=== PATIENT | male | born 1955 | race Caucasian/White ===

== ENCOUNTER 2017-12-27 07:46 | Inpatient (IN) | payer MEDICARE, OTHER ==
[2017-12-27] MEDS: SOD CHLORIDE 0.9% 1,000 ML IV ×2 (09:55→10:26)
[2017-12-27 09:59] LABS: ADD MAN DIFF? NO
[2017-12-27 10:01] LABS: BASOPHIL # 0.1 10^3/ul (0.0-0.1); EOSINOPHILS # 0.4 10^3/ul (0.0-0.5); HEMATOCRIT 42.9 % (42.0-52.0); HEMOGLOBIN 13.9 g/dl (14.0-18.0); LYMPHOCYTES % 13.4 % (15.0-51.0); MEAN CORPUSCULAR HEMOGLOBIN 28.5 pg (29.0-33.0); MEAN CORPUSCULAR HGB CONC 32.4 g/dl (32.0-37.0); MEAN CORPUSCULAR VOLUME 87.9 fl (82.0-101.0); MEAN PLATELET VOLUME 10.2 fl (7.4-10.4); MONOCYTE # 0.6 10^3/ul (0.3-0.9); MONOCYTES % 8.3 % (0.0-11.0); NEUTROPHILS % 70.6 % (39.0-77.0); PLATELET COUNT 172 10^3/UL (140-415); RED BLOOD COUNT 4.88 10^6/ul (4.70-6.10); RED CELL DISTRIBUTION WIDTH 14.3 % (11.5-14.5)
[2017-12-27 10:01] LABS: WHITE BLOOD COUNT 7.1 10^3/ul (4.8-10.8)
[2017-12-27 10:17] LABS: ALANINE AMINOTRANSFERASE 16 IU/L (13-69); ALKALINE PHOSPHATASE 98 IU/L (42-121); ANION GAP 14 (8-16); ASPARTATE AMINO TRANSFERASE 21 IU/L (15-46); BILIRUBIN,INDIRECT 0.1 mg/dl (0-1.1); BILIRUBIN,TOTAL 0.1 mg/dl (0.2-1.3); BLOOD UREA NITROGEN 51 mg/dl (7-20); CALCIUM 8.8 mg/dl (8.4-10.2); CARBON DIOXIDE 24 mmol/L (21-31); CHLORIDE 108 mmol/L (97-110); CREATININE 2.96 mg/dl (0.61-1.24); GLUCOSE 213 mg/dl (70-220); POTASSIUM 4.8 mmol/L (3.5-5.1); SODIUM 141 mmol/L (135-144)
[2017-12-27 10:20] LABS: INR 0.95; PARTIAL THROMBOPLASTIN TIME 25.8 Sec (23.0-35.0); PROTIME 12.8 Sec (11.9-14.9)
[2017-12-27] MEDS ORDERED: ONDANSETRON 4 MG INJ IV (10:30)
[2017-12-27] MEDS ORDERED: ACETAMINOPHEN 325 MG TAB PO (10:30)
[2017-12-27 10:39] LABS: HEMOGLOBIN A1C 7.9 % (0-5.9)
[2017-12-27 10:41] LABS: ALBUMIN 3.6 g/dl (3.3-4.9); ALBUMIN/GLOBULIN RATIO 1.05; CHOLESTEROL 168 mg/dl (100-200); HDL CHOLESTEROL 33 mg/dl (30-78)
[2017-12-27 11:02] LABS: LDL CHOLESTEROL,CALCULATED 91 mg/dl; TRIGLYCERIDES 221 mg/dl (0-149)
[2017-12-27] MEDS ORDERED: TESTOSTERONE CYPIONATE 100 MG XX (11:30)
[2017-12-27] MEDS ORDERED: DOCUSATE SODIUM 100 MG CAP PO ×2 (11:30)
[2017-12-27] MEDS ORDERED: HYDROmorphONE 2 MG TAB PO (11:30)
[2017-12-27] MEDS ORDERED: ACETAMINOPHEN PO (11:30)
[2017-12-27] MEDS ORDERED: HYDROCODONE/APAP (5/325) TAB PO ×2 (11:30→15:30)
[2017-12-27] MEDS ORDERED: ONDANSETRON 4 MG TAB PO (11:30)
[2017-12-27] MEDS ORDERED: NACL 0.9% 3 ML SYG IV (11:30)
[2017-12-27] MEDS ORDERED: HYDROCODONE PO (11:30)
[2017-12-27] MEDS ORDERED: LORAZEPAM 0.5 MG TAB PO (11:30)
[2017-12-27] MEDS ORDERED: ZOLPIDEM TARTRATE 5 MG PO (11:30)
[2017-12-27] MEDS ORDERED: BISACODYL 10 MG SUPP PR (11:30)
[2017-12-27] MEDS ORDERED: [UNRECOGNIZED DRUG - OTHER] PO (11:30)
[2017-12-27] MEDS ORDERED: INSULIN ASPART [NOVOLOG] 3 ML PEN SC (12:00)
[2017-12-27 14:11] LABS: ANION GAP 14 (8-16); BLOOD UREA NITROGEN 50 mg/dl (7-20); CALCIUM 9.3 mg/dl (8.4-10.2); CARBON DIOXIDE 26 mmol/L (21-31); CHLORIDE 108 mmol/L (97-110); CREATININE 2.96 mg/dl (0.61-1.24); GLUCOSE 159 mg/dl (70-220); POTASSIUM 4.4 mmol/L (3.5-5.1); SODIUM 144 mmol/L (135-144)
[2017-12-27] MEDS ORDERED: GLUCAGON 1 MG INJ IM (15:00)
[2017-12-27] MEDS ORDERED: DEXTROSE 50% 50 ML SYRINGE IV ×2 (15:00)
[2017-12-27] MEDS: FAMOTIDINE 20 MG TAB PO (15:00)
[2017-12-27] MEDS ORDERED: GLUCOSE GEL 15 GRAM TUBE PO ×2 (15:00)
[2017-12-27] MEDS ORDERED: GLUCOSE GEL 15 GRAM TUBE BUCCAL (15:00)
[2017-12-27] MEDS: LACTATED RINGER'S 500 ML IV (15:30)
[2017-12-27] MEDS ORDERED: ZOLPIDEM 5 MG TAB PO (15:30)
[2017-12-27] MEDS: LINAGLIPTIN 5 MG TABLET PO (16:49)
[2017-12-27] MEDS: Insulin NOVOLOG SS MILD Algorithm (SS with meals and bedtime) SC ×2 (17:25→21:00)
[2017-12-27] MEDS: METOPROLOL 25 MG TAB PO (21:10)
[2017-12-27] MEDS: URSODIOL 300 MG CAP PO (21:11)
[2017-12-27] MEDS: MONTELUKAST 10 MG TAB PO (21:12)
[2017-12-27] MEDS: ATORVASTATIN 40 MG TAB PO (21:12)
[2017-12-28] MEDS: ACCUCHECK AT 2AM (Patients on SS coverage) XX (02:00)
[2017-12-28 06:13] LABS: ADD MAN DIFF? NO
[2017-12-28 06:21] LABS: WHITE BLOOD COUNT 7.4 10^3/ul (4.8-10.8)
[2017-12-28 06:21] LABS: BASOPHIL # 0.1 10^3/ul (0.0-0.1); BASOPHILS % 1.2 % (0.0-2.0); EOSINOPHILS # 0.4 10^3/ul (0.0-0.5); EOSINOPHILS % 5.9 % (0.0-7.0); HEMATOCRIT 41.5 % (42.0-52.0); HEMOGLOBIN 13.2 g/dl (14.0-18.0); LYMPHOCYTES # 1.1 10^3/ul (0.8-2.9); LYMPHOCYTES % 14.2 % (15.0-51.0); MEAN CORPUSCULAR HEMOGLOBIN 27.9 pg (29.0-33.0); MEAN CORPUSCULAR HGB CONC 31.8 g/dl (32.0-37.0); MEAN CORPUSCULAR VOLUME 87.7 fl (82.0-101.0); MEAN PLATELET VOLUME 10.3 fl (7.4-10.4); MONOCYTE # 0.8 10^3/ul (0.3-0.9); MONOCYTES % 10.5 % (0.0-11.0); NEUTROPHILS % 67.5 % (39.0-77.0); PLATELET COUNT 170 10^3/UL (140-415); RED BLOOD COUNT 4.73 10^6/ul (4.70-6.10); RED CELL DISTRIBUTION WIDTH 14.3 % (11.5-14.5)
[2017-12-28 06:47] LABS: ALANINE AMINOTRANSFERASE 14 IU/L (13-69); ALBUMIN 3.3 g/dl (3.3-4.9); ALBUMIN/GLOBULIN RATIO 1.03; ALKALINE PHOSPHATASE 75 IU/L (42-121); ANION GAP 12 (8-16); ASPARTATE AMINO TRANSFERASE 16 IU/L (15-46); BILIRUBIN,INDIRECT 0.3 mg/dl (0-1.1); BILIRUBIN,TOTAL 0.3 mg/dl (0.2-1.3); BLOOD UREA NITROGEN 47 mg/dl (7-20); CALCIUM 8.9 mg/dl (8.4-10.2); CARBON DIOXIDE 25 mmol/L (21-31); CHLORIDE 109 mmol/L (97-110); CREATININE 2.47 mg/dl (0.61-1.24); GLUCOSE 112 mg/dl (70-220); MAGNESIUM 1.7 mg/dl (1.7-2.5); POTASSIUM 5.4 mmol/L (3.5-5.1); SODIUM 141 mmol/L (135-144); TOTAL PROTEIN 6.5 g/dl (6.1-8.1)
[2017-12-28] MEDS: Insulin NOVOLOG SS MILD Algorithm (SS with meals and bedtime) SC ×4 (07:25→21:00)
[2017-12-28] MEDS: FAMOTIDINE 20 MG TAB PO (08:22)
[2017-12-28] MEDS: LINAGLIPTIN 5 MG TABLET PO (08:22)
[2017-12-28] MEDS: URSODIOL 300 MG CAP PO ×2 (08:22→21:18)
[2017-12-28] MEDS: LORATADINE 10 MG TAB PO (08:22)
[2017-12-28] MEDS: FLUDROCORTISONE 0.1 MG TAB PO (08:23)
[2017-12-28] MEDS: INSULIN GLARGINE [LANTus] (100 UNITS/ML) SYG SC (08:33)
[2017-12-28] MEDS: METOPROLOL 25 MG TAB PO ×2 (08:34→21:19)
[2017-12-28] MEDS ORDERED: ASPIRIN 325 MG TAB PO (09:00)
[2017-12-28] MEDS ORDERED: NON-FORMULARY/PATIENT OWN MED (Sitagliptin* (Januvia*) 50 MG) PO (09:00)
[2017-12-28] MEDS: LACTATED RINGER'S 500 ML IV (11:12)
[2017-12-28] MEDS: TESTOSTERONE CYPIONATE 200 MG/ML INJ IM (13:30)
[2017-12-28] MEDS: ATORVASTATIN 40 MG TAB PO (21:18)
[2017-12-28] MEDS: MONTELUKAST 10 MG TAB PO (21:18)
[2017-12-29] MEDS: ACCUCHECK AT 2AM (Patients on SS coverage) XX (02:00)
[2017-12-29 06:57] LABS: ANION GAP 13 (8-16); BLOOD UREA NITROGEN 53 mg/dl (7-20); CARBON DIOXIDE 24 mmol/L (21-31); CHLORIDE 109 mmol/L (97-110); CREATININE 2.52 mg/dl (0.61-1.24); GLUCOSE 130 mg/dl (70-220); POTASSIUM 5.3 mmol/L (3.5-5.1); SODIUM 141 mmol/L (135-144)
[2017-12-29] MEDS: Insulin NOVOLOG SS MILD Algorithm (SS with meals and bedtime) SC ×4 (07:25→21:00)
[2017-12-29] MEDS: METOPROLOL 25 MG TAB PO ×2 (09:00→21:00)
[2017-12-29] MEDS: FLUDROCORTISONE 0.1 MG TAB PO (09:15)
[2017-12-29] MEDS: FAMOTIDINE 20 MG TAB PO (09:15)
[2017-12-29] MEDS: LORATADINE 10 MG TAB PO (09:15)
[2017-12-29] MEDS: URSODIOL 300 MG CAP PO ×2 (09:16→22:23)
[2017-12-29] MEDS: LINAGLIPTIN 5 MG TABLET PO (09:16)
[2017-12-29] MEDS: INSULIN GLARGINE [LANTus] (100 UNITS/ML) SYG SC (09:36)
[2017-12-29 18:51] LABS: ADD UMIC YES; UR ASCORBIC ACID NEGATIVE (NEGATIVE); UR BACTERIA FEW /HPF (NONE SEEN); UR BILIRUBIN (Dip) NEGATIVE (NEGATIVE); UR BLOOD (Dip) 1+ mg/dL (NEGATIVE); UR CLARITY CLEAR (CLEAR); UR COLOR STRAW (YELLOW); UR GLUCOSE (Dip) 3+ mg/dL (NEGATIVE); UR KETONES (Dip) NEGATIVE (NEGATIVE); UR LEUKOCYTE ESTERASE (Dip) NEGATIVE Leu/ul (NEGATIVE); UR NITRITE (Dip) NEGATIVE (NEGATIVE); UR RBC 1 /HPF (0-5); UR SPECIFIC GRAVITY (Dip) 1.008 (1.003-1.030); UR TOTAL PROTEIN (Dip) 2+ mg/dl (NEGATIVE); UR UROBILINOGEN (Dip) NEGATIVE (NEGATIVE); UR WBC 7 /HPF (0-5)
[2017-12-29] MEDS: ATORVASTATIN 40 MG TAB PO (22:23)
[2017-12-29] MEDS: MONTELUKAST 10 MG TAB PO (22:23)
[2017-12-30] MEDS: ACCUCHECK AT 2AM (Patients on SS coverage) XX (02:00)
[2017-12-30] MEDS: Insulin NOVOLOG SS MILD Algorithm (SS with meals and bedtime) SC (07:25)
[2017-12-30] MEDS: URSODIOL 300 MG CAP PO (08:42)
[2017-12-30] MEDS: FLUDROCORTISONE 0.1 MG TAB PO (08:43)
[2017-12-30] MEDS: LINAGLIPTIN 5 MG TABLET PO (08:43)
[2017-12-30] MEDS: LORATADINE 10 MG TAB PO (08:43)
[2017-12-30] MEDS: FAMOTIDINE 20 MG TAB PO (08:43)
[2017-12-30] MEDS: INSULIN GLARGINE [LANTus] (100 UNITS/ML) SYG SC (08:47)
[2017-12-30] MEDS: METOPROLOL 25 MG TAB PO (10:20)
== END 2017-12-30 11:00 | DRG 65 ==
LOC: E/R 07:46 → TEL 10:27
DX: I62.9 Nontraumatic intracranial hemorrhage, unspecified (principal); E27.40 Unspecified adrenocortical insufficiency; I12.9 Hypertensive chronic kidney disease with stage 1 through stage 4 chronic kidney disease, or unspecified chronic kidney disease; E11.22 Type 2 diabetes mellitus with diabetic chronic kidney disease; N18.3 Chronic kidney disease, stage 3 (moderate); E11.319 Type 2 diabetes mellitus with unspecified diabetic retinopathy without macular edema; F64.9 Gender identity disorder, unspecified; E78.5 Hyperlipidemia, unspecified; E11.21 Type 2 diabetes mellitus with diabetic nephropathy; E11.39 Type 2 diabetes mellitus with other diabetic ophthalmic complication; H54.7 Unspecified visual loss; E11.42 Type 2 diabetes mellitus with diabetic polyneuropathy; J30.9 Allergic rhinitis, unspecified; N18.9 Chronic kidney disease, unspecified; E78.00 Pure hypercholesterolemia, unspecified; Z90.49 Acquired absence of other specified parts of digestive tract; K76.0 Fatty (change of) liver, not elsewhere classified; Z79.4 Long term (current) use of insulin; Z79.02 Long term (current) use of antithrombotics/antiplatelets; Z88.6 Allergy status to analgesic agent
CPT/HCPCS: 36415; 70450; 71045; 80048; 80053; 80061; 81001; 82962; 83036; 83735; 84484; 85025; 85610; 85730; 92610; 93005; 93306; 93880; 96360; 97116; 97162; 97167; 97530; 99285-25

== ENCOUNTER 2017-12-30 11:25 | Inpatient (IN) | payer MEDICARE, OTHER ==
[2017-12-30] MEDS ORDERED: MAGNESIUM HYDROXIDE 30ML CUP PO (12:00)
[2017-12-30] MEDS ORDERED: BISACODYL 10 MG SUPP PR (12:00)
[2017-12-30] MEDS ORDERED: PENDING SANTYL ORDER FOR WOUND CARE XX (12:00)
[2017-12-30] MEDS ORDERED: ONDANSETRON 4 MG TAB PO (12:30)
[2017-12-30] MEDS ORDERED: HYDROmorphONE 2 MG TAB PO (12:30)
[2017-12-30] MEDS ORDERED: LORAZEPAM 0.5 MG TAB PO (12:30)
[2017-12-30] MEDS ORDERED: HYDROCODONE/APAP (5/325) TAB PO (12:30)
[2017-12-30] MEDS ORDERED: TESTOSTERONE CYPIONATE 200 MG/ML INJ IM (12:30)
[2017-12-30] MEDS ORDERED: GLUCOSE GEL 15 GRAM TUBE BUCCAL (13:00)
[2017-12-30] MEDS ORDERED: DEXTROSE 50% 50 ML SYRINGE IV ×2 (13:00)
[2017-12-30] MEDS ORDERED: GLUCAGON 1 MG INJ IM (13:00)
[2017-12-30] MEDS ORDERED: GLUCOSE GEL 15 GRAM TUBE PO ×2 (13:00)
[2017-12-30] MEDS: INSULIN ASPART [NOVOLOG] 3 ML PEN SC ×3 (13:02→21:00)
[2017-12-30] MEDS ORDERED: ACCU-CHEK XX (17:05)
[2017-12-30] MEDS: DOCUSATE SODIUM 100 MG CAP PO (21:00)
[2017-12-30] MEDS: SENNA TAB PO (21:00)
[2017-12-30] MEDS: URSODIOL 300 MG CAP PO (21:41)
[2017-12-30] MEDS: ATORVASTATIN 40 MG TAB PO (21:42)
[2017-12-30] MEDS: MONTELUKAST 10 MG TAB PO (21:42)
[2017-12-30] MEDS: DOXAZOSIN 2 MG TAB PO (21:42)
[2017-12-31 00:44] LABS: ADD UMIC YES; UR ASCORBIC ACID NEGATIVE (NEGATIVE); UR BACTERIA FEW /HPF (NONE SEEN); UR BILIRUBIN (Dip) NEGATIVE (NEGATIVE); UR BLOOD (Dip) NEGATIVE (NEGATIVE); UR CLARITY SLIGHTLY CLOUDY (CLEAR); UR COLOR YELLOW (YELLOW); UR GLUCOSE (Dip) 1+ mg/dL (NEGATIVE); UR KETONES (Dip) NEGATIVE (NEGATIVE); UR LEUKOCYTE ESTERASE (Dip) NEGATIVE Leu/ul (NEGATIVE); UR NITRITE (Dip) NEGATIVE (NEGATIVE); UR RBC 1 /HPF (0-5); UR SPECIFIC GRAVITY (Dip) 1.012 (1.003-1.030); UR TOTAL PROTEIN (Dip) 2+ mg/dl (NEGATIVE); UR UROBILINOGEN (Dip) NEGATIVE (NEGATIVE); UR WBC 12 /HPF (0-5)
[2017-12-31] MEDS: ACCU-CHEK XX (02:00)
[2017-12-31 06:34] LABS: ADD MAN DIFF? NO
[2017-12-31 06:36] LABS: BASOPHIL # 0.1 10^3/ul (0.0-0.1); EOSINOPHILS # 0.4 10^3/ul (0.0-0.5); EOSINOPHILS % 4.3 % (0.0-7.0); HEMATOCRIT 40.2 % (42.0-52.0); HEMOGLOBIN 13.2 g/dl (14.0-18.0); LYMPHOCYTES # 1.5 10^3/ul (0.8-2.9); LYMPHOCYTES % 17.5 % (15.0-51.0); MEAN CORPUSCULAR HEMOGLOBIN 28.5 pg (29.0-33.0); MEAN CORPUSCULAR HGB CONC 32.8 g/dl (32.0-37.0); MEAN CORPUSCULAR VOLUME 86.8 fl (82.0-101.0); MEAN PLATELET VOLUME 10.7 fl (7.4-10.4); MONOCYTE # 0.9 10^3/ul (0.3-0.9); NEUTROPHIL # 5.4 10^3/ul (1.6-7.5); NEUTROPHILS % 65.5 % (39.0-77.0); PLATELET COUNT 159 10^3/UL (140-415); RED BLOOD COUNT 4.63 10^6/ul (4.70-6.10); RED CELL DISTRIBUTION WIDTH 14.2 % (11.5-14.5)
[2017-12-31 06:36] LABS: WHITE BLOOD COUNT 8.3 10^3/ul (4.8-10.8)
[2017-12-31 08:00] LABS: ALANINE AMINOTRANSFERASE 22 IU/L (13-69); ALBUMIN 2.7 g/dl (3.3-4.9); ALBUMIN/GLOBULIN RATIO 0.84; ALKALINE PHOSPHATASE 77 IU/L (42-121); ANION GAP 15 (8-16); ASPARTATE AMINO TRANSFERASE 15 IU/L (15-46); BILIRUBIN,INDIRECT 0.2 mg/dl (0-1.1); BILIRUBIN,TOTAL 0.2 mg/dl (0.2-1.3); BLOOD UREA NITROGEN 75 mg/dl (7-20); CALCIUM 8.6 mg/dl (8.4-10.2); CARBON DIOXIDE 21 mmol/L (21-31); CHLORIDE 106 mmol/L (97-110); CREATININE 2.99 mg/dl (0.61-1.24); GLUCOSE 133 mg/dl (70-220); POTASSIUM 4.8 mmol/L (3.5-5.1); SODIUM 137 mmol/L (135-144); TOTAL PROTEIN 5.9 g/dl (6.1-8.1)
[2017-12-31] MEDS: INSULIN ASPART [NOVOLOG] 3 ML PEN SC ×4 (08:42→21:02)
[2017-12-31] MEDS: INSULIN GLARGINE [LANTus] (100 UNITS/ML) SYG SC (08:49)
[2017-12-31] MEDS: DOCUSATE SODIUM 100 MG CAP PO ×2 (09:00→20:58)
[2017-12-31] MEDS ORDERED: FLUDROCORTISONE 0.1 MG TAB PO (09:00)
[2017-12-31] MEDS: LINAGLIPTIN 5 MG TABLET PO (09:00)
[2017-12-31] MEDS: LORATADINE 10 MG TAB PO (10:57)
[2017-12-31] MEDS: ACETAMINOPHEN 325 MG TAB PO (11:01)
[2017-12-31] MEDS: FLUDROCORTISONE 0.1 MG TAB PO (11:01)
[2017-12-31] MEDS: URSODIOL 300 MG CAP PO ×2 (11:02→20:57)
[2017-12-31] MEDS: FAMOTIDINE 20 MG TAB PO (11:02)
[2017-12-31] MEDS: MONTELUKAST 10 MG TAB PO (20:57)
[2017-12-31] MEDS: DOXAZOSIN 2 MG TAB PO (20:58)
[2017-12-31] MEDS: SENNA TAB PO (20:58)
[2017-12-31] MEDS: ATORVASTATIN 40 MG TAB PO (20:58)
[2018-01-01] MEDS: ACCU-CHEK XX (02:00)
[2018-01-01] MEDS: INSULIN ASPART [NOVOLOG] 3 ML PEN SC ×4 (08:07→20:41)
[2018-01-01] MEDS: INSULIN GLARGINE [LANTus] (100 UNITS/ML) SYG SC (08:08)
[2018-01-01] MEDS: LINAGLIPTIN 5 MG TABLET PO (08:08)
[2018-01-01] MEDS: LORATADINE 10 MG TAB PO (10:16)
[2018-01-01] MEDS: URSODIOL 300 MG CAP PO ×2 (10:16→20:39)
[2018-01-01] MEDS: FAMOTIDINE 20 MG TAB PO (10:16)
[2018-01-01] MEDS: DOCUSATE SODIUM 100 MG CAP PO (10:16)
[2018-01-01] MEDS: FLUDROCORTISONE 0.1 MG TAB PO (10:16)
[2018-01-01] MEDS: LACTULOSE 30ML CUP PO (10:17)
[2018-01-01] MEDS: LACTATED RINGER'S 500 ML IV (15:36)
[2018-01-01] MEDS ORDERED: DOCUSATE SODIUM 100 MG CAP PO (19:00)
[2018-01-01] MEDS ORDERED: SENNA TAB PO (19:00)
[2018-01-01] MEDS: DOXAZOSIN 2 MG TAB PO (20:40)
[2018-01-01] MEDS: MONTELUKAST 10 MG TAB PO (20:40)
[2018-01-01] MEDS: ATORVASTATIN 40 MG TAB PO (20:40)
[2018-01-02] MEDS: ACCU-CHEK XX (02:00)
[2018-01-02] MEDS: INSULIN ASPART [NOVOLOG] 3 ML PEN SC ×4 (07:35→21:15)
[2018-01-02] MEDS: INSULIN GLARGINE [LANTus] (100 UNITS/ML) SYG SC (07:45)
[2018-01-02] MEDS: LINAGLIPTIN 5 MG TABLET PO (08:08)
[2018-01-02 08:20] LABS: ADD MAN DIFF? NO
[2018-01-02 08:25] LABS: BASOPHIL # 0.1 10^3/ul (0.0-0.1); BASOPHILS % 1.1 % (0.0-2.0); EOSINOPHILS # 0.3 10^3/ul (0.0-0.5); EOSINOPHILS % 3.9 % (0.0-7.0); HEMATOCRIT 40.5 % (42.0-52.0); HEMOGLOBIN 12.9 g/dl (14.0-18.0); LYMPHOCYTES # 1.2 10^3/ul (0.8-2.9); LYMPHOCYTES % 13.9 % (15.0-51.0); MEAN CORPUSCULAR HGB CONC 31.9 g/dl (32.0-37.0); MEAN CORPUSCULAR VOLUME 87.9 fl (82.0-101.0); MEAN PLATELET VOLUME 10.6 fl (7.4-10.4); MONOCYTE # 0.7 10^3/ul (0.3-0.9); MONOCYTES % 8.4 % (0.0-11.0); NEUTROPHILS % 71.5 % (39.0-77.0); PLATELET COUNT 174 10^3/UL (140-415); RED BLOOD COUNT 4.61 10^6/ul (4.70-6.10); RED CELL DISTRIBUTION WIDTH 14.2 % (11.5-14.5)
[2018-01-02 08:25] LABS: WHITE BLOOD COUNT 8.4 10^3/ul (4.8-10.8)
[2018-01-02 08:46] LABS: ALANINE AMINOTRANSFERASE 26 IU/L (13-69); ALBUMIN 2.9 g/dl (3.3-4.9); ALBUMIN/GLOBULIN RATIO 0.87; ALKALINE PHOSPHATASE 128 IU/L (42-121); ANION GAP 13 (8-16); ASPARTATE AMINO TRANSFERASE 19 IU/L (15-46); BILIRUBIN,INDIRECT 0.1 mg/dl (0-1.1); BILIRUBIN,TOTAL 0.1 mg/dl (0.2-1.3); BLOOD UREA NITROGEN 85 mg/dl (7-20); CALCIUM 8.7 mg/dl (8.4-10.2); CARBON DIOXIDE 22 mmol/L (21-31); CHLORIDE 111 mmol/L (97-110); GLUCOSE 143 mg/dl (70-220); SODIUM 141 mmol/L (135-144); TOTAL PROTEIN 6.2 g/dl (6.1-8.1)
[2018-01-02] MEDS: URSODIOL 300 MG CAP PO ×2 (09:09→21:16)
[2018-01-02] MEDS: FLUDROCORTISONE 0.1 MG TAB PO (09:09)
[2018-01-02] MEDS: FAMOTIDINE 20 MG TAB PO (09:09)
[2018-01-02] MEDS: LORATADINE 10 MG TAB PO (09:10)
[2018-01-02 09:13] LABS: POTASSIUM 5.4 mmol/L (3.5-5.1)
[2018-01-02] MEDS: LACTATED RINGER'S 500 ML IV (14:40)
[2018-01-02] MEDS: MONTELUKAST 10 MG TAB PO (21:15)
[2018-01-02] MEDS: ATORVASTATIN 40 MG TAB PO (21:16)
[2018-01-02] MEDS: DOXAZOSIN 2 MG TAB PO (21:16)
[2018-01-03] MEDS: ACCU-CHEK XX (02:00)
[2018-01-03 07:33] LABS: ALANINE AMINOTRANSFERASE 19 IU/L (13-69); ALBUMIN 3.1 g/dl (3.3-4.9); ALBUMIN/GLOBULIN RATIO 0.91; ALKALINE PHOSPHATASE 110 IU/L (42-121); ANION GAP 14 (8-16); ASPARTATE AMINO TRANSFERASE 20 IU/L (15-46); BILIRUBIN,INDIRECT 0.2 mg/dl (0-1.1); BILIRUBIN,TOTAL 0.2 mg/dl (0.2-1.3); BLOOD UREA NITROGEN 74 mg/dl (7-20); CALCIUM 8.9 mg/dl (8.4-10.2); CARBON DIOXIDE 19 mmol/L (21-31); CHLORIDE 114 mmol/L (97-110); CREATININE 3.05 mg/dl (0.61-1.24); GLUCOSE 138 mg/dl (70-220); POTASSIUM 5.1 mmol/L (3.5-5.1); SODIUM 142 mmol/L (135-144); TOTAL PROTEIN 6.5 g/dl (6.1-8.1)
[2018-01-03] MEDS: INSULIN ASPART [NOVOLOG] 3 ML PEN SC ×4 (07:35→21:00)
[2018-01-03] MEDS: LINAGLIPTIN 5 MG TABLET PO (08:28)
[2018-01-03] MEDS: INSULIN GLARGINE [LANTus] (100 UNITS/ML) SYG SC (08:29)
[2018-01-03] MEDS: FLUDROCORTISONE 0.1 MG TAB PO (09:24)
[2018-01-03] MEDS: FAMOTIDINE 20 MG TAB PO (09:25)
[2018-01-03] MEDS: URSODIOL 300 MG CAP PO ×2 (09:25→21:02)
[2018-01-03] MEDS: LORATADINE 10 MG TAB PO (09:26)
[2018-01-03] MEDS ORDERED: CIPROFLOXACIN 250 MG TAB PO (11:00)
[2018-01-03] MEDS: CIPROFLOXACIN 500 MG TAB PO (12:18)
[2018-01-03] MEDS ORDERED: traMADol 50 MG TAB PO (12:30)
[2018-01-03] MEDS: ATORVASTATIN 40 MG TAB PO (21:02)
[2018-01-03] MEDS: MONTELUKAST 10 MG TAB PO (21:03)
[2018-01-03] MEDS: DOXAZOSIN 2 MG TAB PO (21:03)
[2018-01-04] MEDS: ACCU-CHEK XX (02:00)
[2018-01-04 06:25] LABS: ADD MAN DIFF? NO
[2018-01-04 06:26] LABS: WHITE BLOOD COUNT 7.7 10^3/ul (4.8-10.8)
[2018-01-04 06:26] LABS: BASOPHIL # 0.1 10^3/ul (0.0-0.1); BASOPHILS % 1.3 % (0.0-2.0); EOSINOPHILS # 0.3 10^3/ul (0.0-0.5); EOSINOPHILS % 3.8 % (0.0-7.0); HEMATOCRIT 41.2 % (42.0-52.0); HEMOGLOBIN 13.3 g/dl (14.0-18.0); LYMPHOCYTES # 0.9 10^3/ul (0.8-2.9); LYMPHOCYTES % 11.3 % (15.0-51.0); MEAN CORPUSCULAR HEMOGLOBIN 28.2 pg (29.0-33.0); MEAN CORPUSCULAR HGB CONC 32.3 g/dl (32.0-37.0); MEAN CORPUSCULAR VOLUME 87.3 fl (82.0-101.0); MEAN PLATELET VOLUME 10.4 fl (7.4-10.4); MONOCYTE # 0.8 10^3/ul (0.3-0.9); MONOCYTES % 10.6 % (0.0-11.0); NEUTROPHIL # 5.5 10^3/ul (1.6-7.5); NEUTROPHILS % 71.2 % (39.0-77.0); PLATELET COUNT 163 10^3/UL (140-415); RED BLOOD COUNT 4.72 10^6/ul (4.70-6.10); RED CELL DISTRIBUTION WIDTH 14.2 % (11.5-14.5)
[2018-01-04] MEDS: CIPROFLOXACIN 500 MG TAB PO (06:30)
[2018-01-04 06:50] LABS: PHOSPHORUS 3.9 mg/dl (2.5-4.9)
[2018-01-04 06:50] LABS: ANION GAP 14 (8-16); BLOOD UREA NITROGEN 61 mg/dl (7-20); CALCIUM 9.4 mg/dl (8.4-10.2); CARBON DIOXIDE 21 mmol/L (21-31); CHLORIDE 112 mmol/L (97-110); CREATININE 2.66 mg/dl (0.61-1.24); GLUCOSE 147 mg/dl (70-220); POTASSIUM 4.7 mmol/L (3.5-5.1); SODIUM 142 mmol/L (135-144)
[2018-01-04] MEDS: INSULIN ASPART [NOVOLOG] 3 ML PEN SC ×5 (07:35→21:52)
[2018-01-04] MEDS: INSULIN GLARGINE [LANTus] (100 UNITS/ML) SYG SC (07:50)
[2018-01-04] MEDS: URSODIOL 300 MG CAP PO ×2 (08:40→21:23)
[2018-01-04] MEDS: FAMOTIDINE 20 MG TAB PO (08:40)
[2018-01-04] MEDS: LORATADINE 10 MG TAB PO (08:40)
[2018-01-04] MEDS: LINAGLIPTIN 5 MG TABLET PO (08:41)
[2018-01-04] MEDS: FLUDROCORTISONE 0.1 MG TAB PO (08:41)
[2018-01-04] MEDS: DOXAZOSIN 2 MG TAB PO (21:23)
[2018-01-04] MEDS: MONTELUKAST 10 MG TAB PO (21:23)
[2018-01-04] MEDS: ATORVASTATIN 40 MG TAB PO (21:23)
[2018-01-05] MEDS: ACCU-CHEK XX (02:00)
[2018-01-05] MEDS: CIPROFLOXACIN 500 MG TAB PO (05:35)
[2018-01-05] MEDS: INSULIN ASPART [NOVOLOG] 3 ML PEN SC ×4 (07:35→21:00)
[2018-01-05] MEDS: LINAGLIPTIN 5 MG TABLET PO (07:45)
[2018-01-05] MEDS: INSULIN GLARGINE [LANTus] (100 UNITS/ML) SYG SC (07:46)
[2018-01-05] MEDS: LORATADINE 10 MG TAB PO (09:14)
[2018-01-05] MEDS: FAMOTIDINE 20 MG TAB PO (09:14)
[2018-01-05] MEDS: URSODIOL 300 MG CAP PO ×2 (09:14→20:58)
[2018-01-05] MEDS: FLUDROCORTISONE 0.1 MG TAB PO (09:14)
[2018-01-05] MEDS: ATORVASTATIN 40 MG TAB PO (20:58)
[2018-01-05] MEDS: DOXAZOSIN 2 MG TAB PO (20:58)
[2018-01-05] MEDS: MONTELUKAST 10 MG TAB PO (20:58)
[2018-01-06] MEDS: ACCU-CHEK XX (02:00)
[2018-01-06] MEDS: CIPROFLOXACIN 500 MG TAB PO (06:11)
[2018-01-06] MEDS: INSULIN ASPART [NOVOLOG] 3 ML PEN SC ×4 (07:35→22:00)
[2018-01-06] MEDS: LINAGLIPTIN 5 MG TABLET PO (08:18)
[2018-01-06] MEDS: INSULIN GLARGINE [LANTus] (100 UNITS/ML) SYG SC (08:19)
[2018-01-06] MEDS: LORATADINE 10 MG TAB PO (09:26)
[2018-01-06] MEDS: FAMOTIDINE 20 MG TAB PO (09:26)
[2018-01-06] MEDS: FLUDROCORTISONE 0.1 MG TAB PO (09:26)
[2018-01-06] MEDS: URSODIOL 300 MG CAP PO ×2 (09:26→22:29)
[2018-01-06] MEDS: MONTELUKAST 10 MG TAB PO (22:29)
[2018-01-06] MEDS: ATORVASTATIN 40 MG TAB PO (22:29)
[2018-01-06] MEDS: DOXAZOSIN 2 MG TAB PO (22:30)
[2018-01-07] MEDS: ACCU-CHEK XX (02:30)
[2018-01-07] MEDS: CIPROFLOXACIN 500 MG TAB PO (06:10)
[2018-01-07] MEDS: INSULIN ASPART [NOVOLOG] 3 ML PEN SC ×4 (07:35→22:30)
[2018-01-07] MEDS: INSULIN GLARGINE [LANTus] (100 UNITS/ML) SYG SC (08:09)
[2018-01-07] MEDS: LINAGLIPTIN 5 MG TABLET PO (08:09)
[2018-01-07] MEDS: FAMOTIDINE 20 MG TAB PO (09:13)
[2018-01-07] MEDS: URSODIOL 300 MG CAP PO ×2 (09:18→22:47)
[2018-01-07] MEDS: FLUDROCORTISONE 0.1 MG TAB PO (09:18)
[2018-01-07] MEDS: LORATADINE 10 MG TAB PO (09:18)
[2018-01-07] MEDS: LACTATED RINGER'S 500 ML IV (18:00)
[2018-01-07] MEDS: ATORVASTATIN 40 MG TAB PO (22:46)
[2018-01-07] MEDS: MONTELUKAST 10 MG TAB PO (22:47)
[2018-01-07] MEDS: DOXAZOSIN 2 MG TAB PO (22:48)
[2018-01-08] MEDS: ACCU-CHEK XX (02:00)
[2018-01-08] MEDS: CIPROFLOXACIN 500 MG TAB PO (06:15)
[2018-01-08 06:58] LABS: ADD MAN DIFF? NO
[2018-01-08 07:02] LABS: BASOPHIL # 0.1 10^3/ul (0.0-0.1); BASOPHILS % 0.9 % (0.0-2.0); EOSINOPHILS # 0.4 10^3/ul (0.0-0.5); EOSINOPHILS % 4.5 % (0.0-7.0); HEMATOCRIT 40.2 % (42.0-52.0); LYMPHOCYTES # 0.9 10^3/ul (0.8-2.9); LYMPHOCYTES % 9.9 % (15.0-51.0); MEAN CORPUSCULAR HEMOGLOBIN 28.4 pg (29.0-33.0); MEAN CORPUSCULAR HGB CONC 32.3 g/dl (32.0-37.0); MEAN CORPUSCULAR VOLUME 87.8 fl (82.0-101.0); MEAN PLATELET VOLUME 10.8 fl (7.4-10.4); MONOCYTE # 0.8 10^3/ul (0.3-0.9); NEUTROPHIL # 6.7 10^3/ul (1.6-7.5); NEUTROPHILS % 74.4 % (39.0-77.0); PLATELET COUNT 168 10^3/UL (140-415); RED BLOOD COUNT 4.58 10^6/ul (4.70-6.10); RED CELL DISTRIBUTION WIDTH 14.5 % (11.5-14.5)
[2018-01-08 07:02] LABS: WHITE BLOOD COUNT 9.1 10^3/ul (4.8-10.8)
[2018-01-08 07:29] LABS: ALANINE AMINOTRANSFERASE 19 IU/L (13-69); ALBUMIN 3.2 g/dl (3.3-4.9); ALBUMIN/GLOBULIN RATIO 0.88; ALKALINE PHOSPHATASE 96 IU/L (42-121); ANION GAP 15 (8-16); ASPARTATE AMINO TRANSFERASE 19 IU/L (15-46); BILIRUBIN,INDIRECT 0.2 mg/dl (0-1.1); BILIRUBIN,TOTAL 0.2 mg/dl (0.2-1.3); BLOOD UREA NITROGEN 67 mg/dl (7-20); CALCIUM 9.5 mg/dl (8.4-10.2); CARBON DIOXIDE 21 mmol/L (21-31); CHLORIDE 110 mmol/L (97-110); CREATININE 3.05 mg/dl (0.61-1.24); GLUCOSE 119 mg/dl (70-220); POTASSIUM 5.2 mmol/L (3.5-5.1); SODIUM 141 mmol/L (135-144); TOTAL PROTEIN 6.8 g/dl (6.1-8.1)
[2018-01-08] MEDS: INSULIN ASPART [NOVOLOG] 3 ML PEN SC ×2 (07:35→12:00)
[2018-01-08] MEDS: INSULIN GLARGINE [LANTus] (100 UNITS/ML) SYG SC (08:05)
[2018-01-08] MEDS: LINAGLIPTIN 5 MG TABLET PO (08:06)
[2018-01-08] MEDS: FLUDROCORTISONE 0.1 MG TAB PO (08:07)
[2018-01-08] MEDS: LORATADINE 10 MG TAB PO (08:08)
[2018-01-08] MEDS: FAMOTIDINE 20 MG TAB PO (08:08)
[2018-01-08] MEDS: URSODIOL 300 MG CAP PO (08:08)
[2018-01-11] MEDS ORDERED: TESTOSTERONE CYPIONATE 200 MG/ML INJ IM (09:00)
== END 2018-01-08 15:30 | DRG 57 ==
LOC: VRC 11:25
PROVIDERS: Physical Medicine & Rehabilitation
PROC: F08Z1ZZ Dressing Techniques Treatment (ICD-10-PCS; principal; 2017-12-30)
PROC: F08Z0ZZ Bathing/Showering Techniques Treatment (ICD-10-PCS; 2017-12-30)
PROC: F08Z2ZZ Grooming/Personal Hygiene Treatment (ICD-10-PCS; 2017-12-30)
PROC: F07Z5ZZ Bed Mobility Treatment (ICD-10-PCS; 2017-12-30)
PROC: F07Z8ZZ Transfer Training Treatment (ICD-10-PCS; 2017-12-30)
PROC: F07Z9ZZ Gait Training/Functional Ambulation Treatment (ICD-10-PCS; 2017-12-30)
DX: I69.298 Other sequelae of other nontraumatic intracranial hemorrhage (principal); N17.9 Acute kidney failure, unspecified; E27.40 Unspecified adrenocortical insufficiency; N39.0 Urinary tract infection, site not specified; E78.5 Hyperlipidemia, unspecified; E11.319 Type 2 diabetes mellitus with unspecified diabetic retinopathy without macular edema; E11.42 Type 2 diabetes mellitus with diabetic polyneuropathy; H54.7 Unspecified visual loss; E11.22 Type 2 diabetes mellitus with diabetic chronic kidney disease; I12.9 Hypertensive chronic kidney disease with stage 1 through stage 4 chronic kidney disease, or unspecified chronic kidney disease; N18.9 Chronic kidney disease, unspecified; K76.0 Fatty (change of) liver, not elsewhere classified; F06.31 Mood disorder due to known physiological condition with depressive features; F01.50 Vascular dementia, unspecified severity, without behavioral disturbance, psychotic disturbance, mood disturbance, and anxiety; F64.8 Other gender identity disorders; E11.21 Type 2 diabetes mellitus with diabetic nephropathy; B96.1 Klebsiella pneumoniae [K. pneumoniae] as the cause of diseases classified elsewhere; J30.9 Allergic rhinitis, unspecified
CPT/HCPCS: 80048; 80053; 81001; 82962; 84100; 85025; 87081; 87086; 92507; 92523; 97110; 97112; 97116; 97150; 97163; 97167; 97530; 97535; 97542

== ENCOUNTER 2018-05-22 19:32 | Inpatient (IN) | payer MEDICARE, OTHER ==
[2018-05-22 20:22] LABS: ADD MAN DIFF? NO
[2018-05-22 20:25] LABS: BASOPHILS % 0.3 % (0.0-2.0); EOSINOPHILS # 0.3 10^3/ul (0.0-0.5); EOSINOPHILS % 2.2 % (0.0-7.0); HEMATOCRIT 23.4 % (42.0-52.0); LYMPHOCYTES # 0.8 10^3/ul (0.8-2.9); LYMPHOCYTES % 6.2 % (15.0-51.0); MEAN CORPUSCULAR HGB CONC 29.9 g/dl (32.0-37.0); MEAN CORPUSCULAR VOLUME 93.6 fl (82.0-101.0); MEAN PLATELET VOLUME 10.9 fl (7.4-10.4); MONOCYTES % 7.8 % (0.0-11.0); NEUTROPHILS % 80.8 % (39.0-77.0); PLATELET COUNT 186 10^3/UL (140-415); RED CELL DISTRIBUTION WIDTH 18.6 % (11.5-14.5)
[2018-05-22 20:25] LABS: WHITE BLOOD COUNT 12.4 10^3/ul (4.8-10.8)
[2018-05-22 20:38] LABS: INR 2.21; PROTIME 24.6 Sec (11.9-14.9); PT RATIO 1.9
[2018-05-22 20:40] LABS: PARTIAL THROMBOPLASTIN TIME 47.9 Sec (23.0-35.0)
[2018-05-22 20:47] LABS: ALANINE AMINOTRANSFERASE 7 IU/L (13-69); ALBUMIN 3.1 g/dl (3.3-4.9); ALBUMIN/GLOBULIN RATIO 0.79; ALKALINE PHOSPHATASE 229 IU/L (42-121); ANION GAP 11 (5-13); ASPARTATE AMINO TRANSFERASE 25 IU/L (15-46); BILIRUBIN,INDIRECT 0.2 mg/dl (0-1.1); BILIRUBIN,TOTAL 0.2 mg/dl (0.2-1.3); BLOOD UREA NITROGEN 48 mg/dl (7-20); CALCIUM 9.5 mg/dl (8.4-10.2); CARBON DIOXIDE 25 mmol/L (21-31); CHLORIDE 99 mmol/L (97-110); CREATININE 1.37 mg/dl (0.61-1.24); Estimated GFR 52 mL/min (>60); GLUCOSE 170 mg/dl (70-220); LIPASE 45 U/L (23-300); POTASSIUM 3.3 mmol/L (3.5-5.1); SODIUM 135 mmol/L (135-144)
[2018-05-22] MEDS ORDERED: NACL 0.9% 3 ML SYG IV (22:30)
[2018-05-22] MEDS ORDERED: morphine 2 MG INJ IV (22:30)
[2018-05-22] MEDS ORDERED: ACETAMINOPHEN 325 MG TAB PO (22:30)
[2018-05-22 23:14] LABS: IMMEDIATE SPIN CROSSMATCH 1 2
[2018-05-23] MEDS: ACETAMINOPHEN 650MG/20.3ML CUP NGT (00:25)
[2018-05-23] MEDS ORDERED: PENDING SANTYL ORDER FOR WOUND CARE XX (06:00)
[2018-05-23 06:08] LABS: AADO2 Arterial 104.3 mmHg (7.0-24.0); Allen Test ACCEPTAB; Arterial Base Excess 0.3 mmol/L (-3.0-3); Arterial Blood Gas Oxygen Sat 98.6 mmHG (95.0-98.0); Arterial COHb 0.2 % (0.0-3.0); Arterial HCO3 23.9 mmol/L (22.0-26.0); Arterial MetHb 0.4 % (0.0-1.5); Arterial pCO2 34.9 mmhg (35-45); MODE VENT - AC; Site Right Radial
[2018-05-23 06:36] LABS: ADD MAN DIFF? NO
[2018-05-23 06:45] LABS: BASOPHIL # 0.1 10^3/ul (0.0-0.1); BASOPHILS % 0.5 % (0.0-2.0); EOSINOPHILS # 0.1 10^3/ul (0.0-0.5); EOSINOPHILS % 0.8 % (0.0-7.0); HEMATOCRIT 27.4 % (42.0-52.0); LYMPHOCYTES # 0.7 10^3/ul (0.8-2.9); LYMPHOCYTES % 4.5 % (15.0-51.0); MEAN CORPUSCULAR HEMOGLOBIN 28.6 pg (29.0-33.0); MEAN CORPUSCULAR HGB CONC 31.4 g/dl (32.0-37.0); MEAN PLATELET VOLUME 11.5 fl (7.4-10.4); MONOCYTE # 1.1 10^3/ul (0.3-0.9); MONOCYTES % 7.3 % (0.0-11.0); NEUTROPHIL # 12.8 10^3/ul (1.6-7.5); NEUTROPHILS % 85.5 % (39.0-77.0); PLATELET COUNT 177 10^3/UL (140-415); RED BLOOD COUNT 3.01 10^6/ul (4.70-6.10); RED CELL DISTRIBUTION WIDTH 17.5 % (11.5-14.5)
[2018-05-23 06:59] LABS: HEMOGLOBIN A1C 6.3 % (0-5.9)
[2018-05-23 07:01] LABS: HEMOGLOBIN 8.6 g/dl (14.0-18.0)
[2018-05-23 07:40] LABS: ALANINE AMINOTRANSFERASE 11 IU/L (13-69); ALBUMIN 2.8 g/dl (3.3-4.9); ALBUMIN/GLOBULIN RATIO 0.73; ALKALINE PHOSPHATASE 173 IU/L (42-121); ANION GAP 9 (5-13); ASPARTATE AMINO TRANSFERASE 21 IU/L (15-46); BILIRUBIN,INDIRECT 0.1 mg/dl (0-1.1); BILIRUBIN,TOTAL 0.1 mg/dl (0.2-1.3); BLOOD UREA NITROGEN 52 mg/dl (7-20); CARBON DIOXIDE 25 mmol/L (21-31); CHLORIDE 99 mmol/L (97-110); CREATININE 1.53 mg/dl (0.61-1.24); Estimated GFR 46 mL/min (>60); GLUCOSE 233 mg/dl (70-220); POTASSIUM 3.7 mmol/L (3.5-5.1); SODIUM 133 mmol/L (135-144); TOTAL PROTEIN 6.6 g/dl (6.1-8.1)
[2018-05-23] MEDS ORDERED: POTASSIUM CHLORIDE 20 MEQ POWDER FOR ORAL SOLN GTB (12:00)
[2018-05-23] MEDS ORDERED: HYDROCODONE/APAP (5/325) TAB GTB (12:00)
[2018-05-23] MEDS ORDERED: COLLAGENASE 5 GM (UD JAR) TOP (12:00)
[2018-05-23] MEDS: metroNIDAZOLE 500 MG TAB GTB ×2 (12:11→17:24)
[2018-05-23] MEDS: COLLAGENASE 5 GM (UD JAR) TOP (12:11)
[2018-05-23] MEDS ORDERED: GLUCAGON 1 MG INJ IM (12:30)
[2018-05-23] MEDS ORDERED: GLUCOSE GEL 15 GRAM TUBE PO ×2 (12:30)
[2018-05-23] MEDS ORDERED: DEXTROSE 50% 50 ML SYRINGE IV (12:30)
[2018-05-23] MEDS ORDERED: GLUCOSE GEL 15 GRAM TUBE BUCCAL (12:30)
[2018-05-23] MEDS: INSULIN ASPART [NOVOLOG] 3 ML PEN SC ×3 (14:03→20:30)
[2018-05-23] MEDS: ALBUTEROL/IPRATROPIUM (NEB) 3 ML AMP INH (16:12)
[2018-05-23] MEDS: SEVELAMER CARBONATE 0.8 GM PKT GTB (17:41)
[2018-05-23] MEDS ORDERED: SEVELAMER CARBONATE 800 MG TABLET PO (17:55)
[2018-05-23] MEDS: SODIUM HYPOCHLORITE (1/40) 1 APPLIC BTL IRR (18:04)
[2018-05-23] MEDS: LEVETIRACETAM 750 MG TAB GTB (20:11)
[2018-05-23] MEDS: BALSAM PERU/CASTOR OIL 60 GM TUBE TOP (20:12)
[2018-05-23] MEDS: INSULIN DETEMIR [LEVEMIR] (100 UNITS/ML) SYG SC (20:30)
[2018-05-24] MEDS: metroNIDAZOLE 500 MG TAB GTB ×4 (00:54→17:26)
[2018-05-24] MEDS: INSULIN ASPART [NOVOLOG] 3 ML PEN SC ×6 (01:29→21:00)
[2018-05-24] MEDS: ACCU-CHEK XX (01:29)
[2018-05-24 06:38] LABS: ADD MAN DIFF? NO
[2018-05-24 06:42] LABS: WHITE BLOOD COUNT 11.4 10^3/ul (4.8-10.8)
[2018-05-24 06:42] LABS: BASOPHIL # 0.1 10^3/ul (0.0-0.1); BASOPHILS % 0.6 % (0.0-2.0); EOSINOPHILS # 0.3 10^3/ul (0.0-0.5); EOSINOPHILS % 2.5 % (0.0-7.0); HEMATOCRIT 28.8 % (42.0-52.0); HEMOGLOBIN 8.8 g/dl (14.0-18.0); LYMPHOCYTES # 0.6 10^3/ul (0.8-2.9); LYMPHOCYTES % 5.6 % (15.0-51.0); MEAN CORPUSCULAR HGB CONC 30.6 g/dl (32.0-37.0); MEAN CORPUSCULAR VOLUME 91.7 fl (82.0-101.0); MEAN PLATELET VOLUME 11.2 fl (7.4-10.4); MONOCYTE # 0.8 10^3/ul (0.3-0.9); MONOCYTES % 7.1 % (0.0-11.0); NEUTROPHIL # 9.4 10^3/ul (1.6-7.5); NEUTROPHILS % 82.2 % (39.0-77.0); PLATELET COUNT 182 10^3/UL (140-415); RED BLOOD COUNT 3.14 10^6/ul (4.70-6.10); RED CELL DISTRIBUTION WIDTH 17.5 % (11.5-14.5)
[2018-05-24 07:04] LABS: ANION GAP 10 (5-13); BLOOD UREA NITROGEN 67 mg/dl (7-20); CALCIUM 8.7 mg/dl (8.4-10.2); CARBON DIOXIDE 24 mmol/L (21-31); CHLORIDE 101 mmol/L (97-110); CREATININE 1.83 mg/dl (0.61-1.24); Estimated GFR 37 mL/min (>60); GLUCOSE 138 mg/dl (70-220); POTASSIUM 3.6 mmol/L (3.5-5.1); SODIUM 135 mmol/L (135-144)
[2018-05-24] MEDS: LEVETIRACETAM 750 MG TAB GTB ×2 (08:54→21:17)
[2018-05-24] MEDS: MULTIVIT/CA CARB/B CMPLX/FA TAB GTB (08:55)
[2018-05-24] MEDS: AMIODARONE 200 MG TAB GTB (08:55)
[2018-05-24] MEDS: FAMOTIDINE 20 MG TAB GTB (08:55)
[2018-05-24] MEDS: SEVELAMER CARBONATE 0.8 GM PKT GTB ×3 (08:58→17:26)
[2018-05-24] MEDS: INSULIN DETEMIR [LEVEMIR] (100 UNITS/ML) SYG SC ×2 (09:07→21:47)
[2018-05-24] MEDS: SODIUM HYPOCHLORITE (1/40) 1 APPLIC BTL IRR (09:07)
[2018-05-24] MEDS: COLLAGENASE 5 GM (UD JAR) TOP (09:08)
[2018-05-24] MEDS: BALSAM PERU/CASTOR OIL 60 GM TUBE TOP ×2 (09:08→21:18)
[2018-05-24] MEDS: ACETAMINOPHEN 650MG/20.3ML CUP GTB (15:49)
[2018-05-25] MEDS: metroNIDAZOLE 500 MG TAB GTB ×4 (00:40→17:36)
[2018-05-25] MEDS: INSULIN ASPART [NOVOLOG] 3 ML PEN SC ×6 (01:00→21:00)
[2018-05-25] MEDS: ACCU-CHEK XX (02:00)
[2018-05-25] MEDS: ACETAMINOPHEN 650MG/20.3ML CUP GTB (04:37)
[2018-05-25 06:48] LABS: ADD MAN DIFF? NO
[2018-05-25 06:56] LABS: BASOPHILS % 0.3 % (0.0-2.0); EOSINOPHILS # 0.2 10^3/ul (0.0-0.5); EOSINOPHILS % 1.5 % (0.0-7.0); HEMATOCRIT 27.8 % (42.0-52.0); HEMOGLOBIN 8.8 g/dl (14.0-18.0); LYMPHOCYTES # 0.6 10^3/ul (0.8-2.9); LYMPHOCYTES % 4.9 % (15.0-51.0); MEAN CORPUSCULAR HEMOGLOBIN 28.5 pg (29.0-33.0); MEAN CORPUSCULAR HGB CONC 31.7 g/dl (32.0-37.0); MEAN PLATELET VOLUME 10.4 fl (7.4-10.4); MONOCYTES % 7.3 % (0.0-11.0); NEUTROPHIL # 10.9 10^3/ul (1.6-7.5); NEUTROPHILS % 83.9 % (39.0-77.0); PLATELET COUNT 177 10^3/UL (140-415); RED BLOOD COUNT 3.09 10^6/ul (4.70-6.10); RED CELL DISTRIBUTION WIDTH 17.2 % (11.5-14.5)
[2018-05-25 07:20] LABS: ANION GAP 11 (5-13); BLOOD UREA NITROGEN 81 mg/dl (7-20); CALCIUM 8.8 mg/dl (8.4-10.2); CARBON DIOXIDE 24 mmol/L (21-31); CHLORIDE 101 mmol/L (97-110); CREATININE 1.92 mg/dl (0.61-1.24); Estimated GFR 35 mL/min (>60); GLUCOSE 87 mg/dl (70-220); POTASSIUM 3.7 mmol/L (3.5-5.1); SODIUM 136 mmol/L (135-144)
[2018-05-25] MEDS: AMIODARONE 200 MG TAB GTB (08:07)
[2018-05-25] MEDS: SEVELAMER CARBONATE 0.8 GM PKT GTB ×3 (08:22→17:36)
[2018-05-25] MEDS: COLLAGENASE 5 GM (UD JAR) TOP (08:23)
[2018-05-25] MEDS: MIDODRINE 5 MG TAB GTB (08:23)
[2018-05-25] MEDS: LEVETIRACETAM 750 MG TAB GTB ×2 (08:23→22:13)
[2018-05-25] MEDS: MULTIVIT/CA CARB/B CMPLX/FA TAB GTB (08:23)
[2018-05-25] MEDS: FAMOTIDINE 20 MG TAB GTB (08:23)
[2018-05-25] MEDS: SODIUM HYPOCHLORITE (1/40) 1 APPLIC BTL IRR (08:24)
[2018-05-25] MEDS: INSULIN DETEMIR [LEVEMIR] (100 UNITS/ML) SYG SC ×2 (08:27→22:33)
[2018-05-25] MEDS: BALSAM PERU/CASTOR OIL 60 GM TUBE TOP ×2 (08:34→22:35)
[2018-05-25] MEDS ORDERED: morphine LIQ (10 MG/5 ML) CUP PO (17:30)
[2018-05-25] MEDS: DEXTROSE 50% 50 ML SYRINGE IV (17:49)
[2018-05-26] MEDS: metroNIDAZOLE 500 MG TAB GTB ×4 (00:52→17:14)
[2018-05-26] MEDS: INSULIN ASPART [NOVOLOG] 3 ML PEN SC ×6 (01:00→20:46)
[2018-05-26] MEDS: MULTIVIT/CA CARB/B CMPLX/FA TAB GTB (08:59)
[2018-05-26] MEDS: AMIODARONE 200 MG TAB GTB (09:00)
[2018-05-26] MEDS: FAMOTIDINE 20 MG TAB GTB (09:00)
[2018-05-26] MEDS: SEVELAMER CARBONATE 0.8 GM PKT GTB ×3 (09:00→17:14)
[2018-05-26] MEDS: BALSAM PERU/CASTOR OIL 60 GM TUBE TOP ×2 (09:01→20:46)
[2018-05-26] MEDS: COLLAGENASE 5 GM (UD JAR) TOP (09:01)
[2018-05-26] MEDS: SODIUM HYPOCHLORITE (1/40) 1 APPLIC BTL IRR (09:01)
[2018-05-26] MEDS: INSULIN DETEMIR [LEVEMIR] (100 UNITS/ML) SYG SC ×2 (09:08→20:47)
[2018-05-26] MEDS: LEVETIRACETAM 750 MG TAB GTB ×2 (10:41→20:46)
[2018-05-26 20:17] LABS: ANION GAP 10 (5-13); BLOOD UREA NITROGEN 97 mg/dl (7-20); CARBON DIOXIDE 24 mmol/L (21-31); CHLORIDE 100 mmol/L (97-110); CREATININE 2.05 mg/dl (0.61-1.24); Estimated GFR 33 mL/min (>60); GLUCOSE 117 mg/dl (70-220); POTASSIUM 3.9 mmol/L (3.5-5.1); SODIUM 134 mmol/L (135-144)
[2018-05-26] MEDS: ACETAMINOPHEN 650MG/20.3ML CUP GTB (20:46)
== END 2018-05-26 23:05 | DRG 811 ==
LOC: TEL 21:28 → 6WM 05-26 11:00 → E/R 19:32
PROC: 30233N1 Transfusion of Nonautologous Red Blood Cells into Peripheral Vein, Percutaneous Approach (ICD-10-PCS; principal; 2018-05-22)
PROC: 5A1955Z Respiratory Ventilation, Greater than 96 Consecutive Hours (ICD-10-PCS; 2018-05-22)
PROC: 4A033R1 Measurement of Arterial Saturation, Peripheral, Percutaneous Approach (ICD-10-PCS; 2018-05-23)
DX: D50.0 Iron deficiency anemia secondary to blood loss (chronic) (principal); N18.6 End stage renal disease; J96.21 Acute and chronic respiratory failure with hypoxia; J96.22 Acute and chronic respiratory failure with hypercapnia; G93.1 Anoxic brain damage, not elsewhere classified; Z99.11 Dependence on respirator [ventilator] status; E27.49 Other adrenocortical insufficiency; I12.0 Hypertensive chronic kidney disease with stage 5 chronic kidney disease or end stage renal disease; N17.9 Acute kidney failure, unspecified; L89.150 Pressure ulcer of sacral region, unstageable; E11.22 Type 2 diabetes mellitus with diabetic chronic kidney disease; E11.42 Type 2 diabetes mellitus with diabetic polyneuropathy; E78.00 Pure hypercholesterolemia, unspecified; E66.9 Obesity, unspecified; E11.39 Type 2 diabetes mellitus with other diabetic ophthalmic complication; H54.7 Unspecified visual loss; E11.21 Type 2 diabetes mellitus with diabetic nephropathy; G40.909 Epilepsy, unspecified, not intractable, without status epilepticus; F64.0 Transsexualism; E11.3599 Type 2 diabetes mellitus with proliferative diabetic retinopathy without macular edema, unspecified eye; I48.0 Paroxysmal atrial fibrillation; Z93.1 Gastrostomy status; Z93.0 Tracheostomy status; Z86.74 Personal history of sudden cardiac arrest; Z74.01 Bed confinement status; Z99.2 Dependence on renal dialysis; Z90.49 Acquired absence of other specified parts of digestive tract; Z79.4 Long term (current) use of insulin; Z86.73 Personal history of transient ischemic attack (TIA), and cerebral infarction without residual deficits; Z79.01 Long term (current) use of anticoagulants
CPT/HCPCS: 36430; 36600; 80048; 80053; 82803; 82962; 83036; 83690; 85025; 85610; 85730; 86850; 86900; 86901; 86920; 87081; 94002; 94003; 94640; 94664; 99285-25

== ENCOUNTER 2018-06-12 15:22 | Day surgery (SDC) | payer OTHER, MEDICARE | END 2018-06-12 18:43 | disposition short-term general hospital (02) | LOC: GIL 15:22 | DX: R13.14 Dysphagia, pharyngoesophageal phase (principal); K29.70 Gastritis, unspecified, without bleeding; K31.84 Gastroparesis; K94.23 Gastrostomy malfunction; Y84.8 Other medical procedures as the cause of abnormal reaction of the patient, or of later complication, without mention of misadventure at the time of the procedure; I12.0 Hypertensive chronic kidney disease with stage 5 chronic kidney disease or end stage renal disease; N18.6 End stage renal disease; Z99.2 Dependence on renal dialysis; E11.9 Type 2 diabetes mellitus without complications; Z86.73 Personal history of transient ischemic attack (TIA), and cerebral infarction without residual deficits | CPT/HCPCS: 49446; 94002 ==

== ENCOUNTER 2018-07-17 21:09 | Inpatient (IN) | payer MEDICARE, OTHER ==
[2018-07-17] MEDS: SODIUM CHLORIDE 0.9% 1L BAG IV* (21:30)
[2018-07-17 21:52] LABS: AADO2 Arterial 152.4 mmHg (7.0-24.0); Allen Test ACCEPTAB; Arterial Base Excess 2.7 mmol/L (-3.0-3); Arterial Blood Gas Oxygen Sat 99.5 mmHG (95.0-98.0); Arterial COHb 0.5 % (0.0-3.0); Arterial Fraction of Oxyhgb 98.7 % (93.0-99.0); Arterial HCO3 26.6 mmol/L (22.0-26.0); Arterial MetHb 0.3 % (0.0-1.5); Arterial pCO2 37.7 mmhg (35-45); MODE VENT - AC; Site Left Radial
[2018-07-17] MEDS: LEVOFLOXACIN 750MG/D5W (PMX) 150 ML IVPB (22:09)
[2018-07-17 22:15] LABS: WHITE BLOOD COUNT 12.1 10^3/ul (4.8-10.8)
[2018-07-17 22:15] LABS: ABNORMAL IP MESSAGE 1; HEMATOCRIT 23.5 % (42.0-52.0); MEAN CORPUSCULAR HEMOGLOBIN 29.5 pg (29.0-33.0); MEAN CORPUSCULAR HGB CONC 29.8 g/dl (32.0-37.0); MEAN CORPUSCULAR VOLUME 99.2 fl (82.0-101.0); MEAN PLATELET VOLUME 10.5 fl (7.4-10.4); NUCLEATED RED BLOOD CELLS% 0.4 /100WBC (0.0-0.0); PLATELET COUNT 108 10^3/UL (140-415); POSITIVE DIFF @See below; RED BLOOD COUNT 2.37 10^6/ul (4.70-6.10); RED CELL DISTRIBUTION WIDTH 17.8 % (11.5-14.5)
[2018-07-17 22:21] LABS: ADD MAN DIFF? YES
[2018-07-17] MEDS: VANCOMYCIN 1 GM (PMX) 250 ML IVPB (22:25)
[2018-07-17 22:35] LABS: INR 1.22; PROTIME 15.5 Sec (11.9-14.9); PT RATIO 1.2
[2018-07-17 22:36] LABS: PARTIAL THROMBOPLASTIN TIME 32.4 Sec (23.0-35.0)
[2018-07-17 23:01] LABS: ANISOCYTOSIS 1+ (0-0); BASOPHIL #M 0.2 10^3/ul (0.0-0.0); BASOPHILS % (M) 2 % (0-2); EOSINOPHILS % (M) 8 % (0-7); HYPOCHROMASIA 1+ (0-0); LYMPHOCYTES #M 0.8 10^3/ul (0.8-2.9); LYMPHOCYTES % (M) 7 % (15-51); MICROCYTOSIS 1+ (0-0); MONOCYTE #M 0.4 10^3/ul (0.3-0.9); MONOCYTES % (M) 4 % (0-11); PLATELET ESTIMATE DECREASED; POLYCHROMASIA 2+ (0-0); SEGMENTED NEUTROPHILS (M) % 79 % (39-77); SMUDGE%M 8 % (0-0)
[2018-07-17 23:03] LABS: LACTIC ACID 1.4 mmol/L (0.5-2.0)
[2018-07-17 23:04] LABS: ALANINE AMINOTRANSFERASE 7 IU/L (13-69); ALBUMIN 3.1 g/dl (3.3-4.9); ALBUMIN/GLOBULIN RATIO 0.79; ALKALINE PHOSPHATASE 166 IU/L (42-121); ANION GAP 11 (5-13); ASPARTATE AMINO TRANSFERASE 17 IU/L (15-46); BILIRUBIN,INDIRECT 0.2 mg/dl (0-1.1); BILIRUBIN,TOTAL 0.2 mg/dl (0.2-1.3); BLOOD UREA NITROGEN 42 mg/dl (7-20); CALCIUM 9.6 mg/dl (8.4-10.2); CARBON DIOXIDE 29 mmol/L (21-31); CHLORIDE 100 mmol/L (97-110); CREATININE 1.41 mg/dl (0.61-1.24); Estimated GFR 51 mL/min (>60); GLUCOSE 123 mg/dl (70-220); POTASSIUM 3.1 mmol/L (3.5-5.1); SODIUM 140 mmol/L (135-144)
[2018-07-17 23:15] LABS: ADD UMIC YES; TROPONIN-I 0.017 ng/ml (0.000-0.120); UR ASCORBIC ACID 40 mg/dL (NEGATIVE); UR BACTERIA MODERATE /HPF (NONE SEEN); UR BILIRUBIN (Dip) NEGATIVE (NEGATIVE); UR BLOOD (Dip) 1+ mg/dL (NEGATIVE); UR BUDDING YEAST MANY /HPF (NONE SEEN); UR CLARITY TURBID (CLEAR); UR COLOR AMBER (YELLOW); UR GLUCOSE (Dip) NEGATIVE (NEGATIVE); UR KETONES (Dip) NEGATIVE (NEGATIVE); UR LEUKOCYTE ESTERASE (Dip) 3+ Leu/ul (NEGATIVE); UR NITRITE (Dip) NEGATIVE (NEGATIVE); UR RBC 101 /HPF (0-5); UR SPECIFIC GRAVITY (Dip) 1.023 (1.003-1.030); UR TOTAL PROTEIN (Dip) 3+ mg/dl (NEGATIVE); UR UROBILINOGEN (Dip) 1+ mg/dL (NEGATIVE); UR WBC > 182 /HPF (0-5)
[2018-07-17] MEDS ORDERED: ACETAMINOPHEN 325 MG TAB PO (23:30)
[2018-07-17] MEDS ORDERED: ONDANSETRON 4 MG INJ IV (23:30)
[2018-07-18 02:55] LABS: LACTIC ACID 1.2 mmol/L (0.5-2.0)
[2018-07-18] MEDS ORDERED: morphine 2 MG INJ IV (03:00)
[2018-07-18] MEDS: SOD CHLORIDE 0.9% 1,000 ML IV ×2 (03:00→12:53)
[2018-07-18] MEDS ORDERED: ONDANSETRON 4 MG INJ IV (03:00)
[2018-07-18] MEDS ORDERED: ACETAMINOPHEN 650MG/20.3ML CUP GTB (03:00)
[2018-07-18] MEDS ORDERED: VANCOMYCIN IV PER PHARMACY XX (03:00)
[2018-07-18 05:18] LABS: IMMEDIATE SPIN CROSSMATCH 1 1
[2018-07-18] MEDS: VANCOMYCIN 500 MG (PMX) 100 ML IVPB (09:08)
[2018-07-18] MEDS ORDERED: COLLAGENASE 5 GM (UD JAR) TOP (10:30)
[2018-07-18] MEDS: POTASSIUM CHLORIDE 20 MEQ POWDER FOR ORAL SOLN GTB (12:53)
[2018-07-18] MEDS: DAKINS 0.0125%(1/40) 473 ML SOLUTION TP ×2 (14:54→20:27)
[2018-07-18] MEDS: COLLAGENASE 5 GM (UD JAR) TOP ×2 (14:54→20:27)
[2018-07-18] MEDS: BALSAM PERU/CASTOR OIL 60 GM TUBE TOP ×2 (14:55→20:27)
[2018-07-18] MEDS ORDERED: VANCOMYCIN HCL 1.25 GM in SOD CHLORIDE 0.9% 250 ML IVPB (18:00)
[2018-07-18] MEDS: NYSTATIN 30 GM POWDER BTL TOP (20:27)
[2018-07-18] MEDS ORDERED: ALBUMIN HUMAN 25% 100 ML IV (21:00)
[2018-07-18] MEDS ORDERED: SODIUM CHLORIDE 0.9% 1L BAG IV (21:00)
[2018-07-18] MEDS ORDERED: LEVOFLOXACIN 500MG/D5W (PMX) 100 ML IVPB (22:00)
[2018-07-19] MEDS: SOD CHLORIDE 0.9% 1,000 ML IV ×2 (02:17→23:58)
[2018-07-19 07:39] LABS: HEPATITIS B SURFACE ANTIGEN NEGATIVE (NEGATIVE)
[2018-07-19] MEDS: NYSTATIN 30 GM POWDER BTL TOP ×2 (07:39→21:43)
[2018-07-19] MEDS: DAKINS 0.0125%(1/40) 473 ML SOLUTION TP ×2 (07:39→21:43)
[2018-07-19] MEDS: BALSAM PERU/CASTOR OIL 60 GM TUBE TOP ×2 (07:39→21:43)
[2018-07-19] MEDS: COLLAGENASE 5 GM (UD JAR) TOP ×2 (07:46→21:44)
[2018-07-19 08:38] LABS: ANION GAP 9 (5-13); BLOOD UREA NITROGEN 49 mg/dl (7-20); CALCIUM 9.2 mg/dl (8.4-10.2); CARBON DIOXIDE 23 mmol/L (21-31); CHLORIDE 107 mmol/L (97-110); CREATININE 1.75 mg/dl (0.61-1.24); Estimated GFR 39 mL/min (>60); GLUCOSE 313 mg/dl (70-220); POTASSIUM 3.6 mmol/L (3.5-5.1); SODIUM 139 mmol/L (135-144)
[2018-07-19] MEDS: HEPARIN 1000 UNITS/ML 10 ML INJ CATHETER (20:44)
[2018-07-19] MEDS: LEVOFLOXACIN 250MG/D5W (PMX) 50 ML IVPB (21:44)
[2018-07-20 06:01] LABS: ABNORMAL IP MESSAGE 1; HEMATOCRIT 26.1 % (42.0-52.0); HEMOGLOBIN 7.9 g/dl (14.0-18.0); MEAN CORPUSCULAR HEMOGLOBIN 29.2 pg (29.0-33.0); MEAN CORPUSCULAR HGB CONC 30.3 g/dl (32.0-37.0); MEAN CORPUSCULAR VOLUME 96.3 fl (82.0-101.0); MEAN PLATELET VOLUME 11.6 fl (7.4-10.4); NUCLEATED RED BLOOD CELLS% 1.1 /100WBC (0.0-0.0); PLATELET COUNT 101 10^3/UL (140-415); POSITIVE DIFF @See below; RED BLOOD COUNT 2.71 10^6/ul (4.70-6.10); RED CELL DISTRIBUTION WIDTH 18.5 % (11.5-14.5)
[2018-07-20 06:17] LABS: ADD MAN DIFF? YES
[2018-07-20 06:19] LABS: BLOOD UREA NITROGEN 31 mg/dl (7-20)
[2018-07-20 06:19] LABS: CREATININE 1.19 mg/dl (0.61-1.24)
[2018-07-20 06:29] LABS: VANCOMYCIN,RANDOM 12.3 ug/ml
[2018-07-20 06:32] LABS: ANION GAP 8 (5-13); BLOOD UREA NITROGEN 31 mg/dl (7-20); CALCIUM 9.3 mg/dl (8.4-10.2); CARBON DIOXIDE 26 mmol/L (21-31); CHLORIDE 105 mmol/L (97-110); Estimated GFR > 60 mL/min (>60); GLUCOSE 355 mg/dl (70-220); POTASSIUM 3.5 mmol/L (3.5-5.1); SODIUM 139 mmol/L (135-144)
[2018-07-20 07:28] LABS: ANISOCYTOSIS 1+ (0-0); BAND NEUTROPHILS #M 0.4 10^3/ul (0.0-0.6); BAND NEUTROPHILS % (M) 4 % (0-4); BURR CELLS 1+ (0-0); ERYTHROBLAST% (NRBC) (M) 3 % (0-0); LYMPHOCYTES #M 0.2 10^3/ul (0.8-2.9); LYMPHOCYTES % (M) 2 % (15-51); METAMYELOCYTES #M 0.1 10^3/ul (0.0-0.0); METAMYELOCYTES %M 1 % (0-0); MICROCYTOSIS 1+ (0-0); MONOCYTE #M 0.4 10^3/ul (0.3-0.9); MONOCYTES % (M) 4 % (0-11); MYELOCYTES #M 0.7 10^3/ul (0.0-0.0); MYELOCYTES % (M) 6 % (0-0); PLATELET ESTIMATE DECREASED; POIKILOCYTOSIS 1+ (0-0); POLYCHROMASIA 3+ (0-0); REACTIVE LYMPHOCYTES #M 0.3 10^3/ul (0.0-0.0); REACTIVE LYMPHOCYTES% (M) 3 % (0-0); SEG NEUT #M 9.6 10^3/ul (1.6-7.5); SEGMENTED NEUTROPHILS (M) % 80 % (39-77); SMUDGE%M 1 % (0-0)
[2018-07-20] MEDS: BALSAM PERU/CASTOR OIL 60 GM TUBE TOP ×2 (09:45→21:34)
[2018-07-20] MEDS: DAKINS 0.0125%(1/40) 473 ML SOLUTION TP (09:45)
[2018-07-20] MEDS: NYSTATIN 30 GM POWDER BTL TOP ×2 (09:45→21:34)
[2018-07-20] MEDS: COLLAGENASE 5 GM (UD JAR) TOP ×2 (09:45→21:33)
[2018-07-20] MEDS: VANCOMYCIN 1 GM 250 ML IVPB (17:08)
[2018-07-21] MEDS: SOD CHLORIDE 0.9% 1,000 ML IV ×2 (02:04→21:56)
[2018-07-21] MEDS: DAKINS 0.0125%(1/40) 473 ML SOLUTION TP ×3 (02:53→21:57)
[2018-07-21] MEDS: NYSTATIN 30 GM POWDER BTL TOP ×2 (09:12→21:57)
[2018-07-21] MEDS: BALSAM PERU/CASTOR OIL 60 GM TUBE TOP ×2 (09:12→21:57)
[2018-07-21] MEDS: COLLAGENASE 5 GM (UD JAR) TOP ×2 (09:12→21:56)
[2018-07-21] MEDS ORDERED: GLUCOSE GEL 15 GRAM TUBE PO ×2 (13:00)
[2018-07-21] MEDS ORDERED: DEXTROSE 50% 50 ML SYRINGE IV ×2 (13:00)
[2018-07-21] MEDS ORDERED: GLUCOSE GEL 15 GRAM TUBE BUCCAL (13:00)
[2018-07-21] MEDS ORDERED: GLUCAGON 1 MG INJ IM (13:00)
[2018-07-21] MEDS: HEPARIN 1000 UNITS/ML 10 ML INJ CATHETER (16:40)
[2018-07-21] MEDS: INSULIN ASPART [NOVOLOG] 3 ML PEN SC ×2 (18:39→22:18)
[2018-07-21] MEDS: LEVOFLOXACIN 250MG/D5W (PMX) 50 ML IVPB (22:09)
[2018-07-21] MEDS: INSULIN GLARGINE [LANTus] (100 UNITS/ML) SYG SC (22:18)
[2018-07-22 01:18] LABS: AADO2 Arterial 110.9 mmHg (7.0-24.0); Allen Test ACCEPTAB; Arterial Base Excess 3.3 mmol/L (-3.0-3); Arterial Blood Gas Oxygen Sat 97.4 mmHG (95.0-98.0); Arterial COHb 1.3 % (0.0-3.0); Arterial Fraction of Oxyhgb 95.7 % (93.0-99.0); Arterial HCO3 26.4 mmol/L (22.0-26.0); Arterial MetHb 0.4 % (0.0-1.5); Arterial pCO2 33.1 mmhg (35-45); MODE VENT - AC; Site Right Radial
[2018-07-22] MEDS: ACCU-CHEK XX (02:00)
[2018-07-22 06:06] LABS: RETICULOCYTE RBC 2.83
[2018-07-22 06:06] LABS: RETICULOCYTE COUNT # 0.121 X10^6 (0.020-0.110); RETICULOCYTE COUNT % 4.3 % (0.5-1.5)
[2018-07-22] MEDS: INSULIN ASPART [NOVOLOG] 3 ML PEN SC ×3 (08:00→18:27)
[2018-07-22 08:03] LABS: FOLATE > 20.0 ng/ml (2.8-20.0)
[2018-07-22] MEDS: NYSTATIN 30 GM POWDER BTL TOP ×2 (09:12→21:17)
[2018-07-22] MEDS: DAKINS 0.0125%(1/40) 473 ML SOLUTION TP ×2 (09:13→21:18)
[2018-07-22] MEDS: BALSAM PERU/CASTOR OIL 60 GM TUBE TOP ×2 (09:13→21:18)
[2018-07-22] MEDS: COLLAGENASE 5 GM (UD JAR) TOP ×2 (09:13→21:17)
[2018-07-22 09:22] LABS: IRON 46 ug/dl (35-150)
[2018-07-22 09:31] LABS: % IRON SATURATION 27 % SAT (22-52); TOTAL IRON BINDING CAPACITY 170 ug/dl (241-421)
[2018-07-22] MEDS ORDERED: GENTAMICIN IV PER PHARMACY XX (16:30)
[2018-07-22] MEDS: SOD CHLORIDE 0.9% 1,000 ML IV (17:56)
[2018-07-22] MEDS: GENTAMICIN 120 MG/NS (PMX) 100 ML IVPB (18:15)
[2018-07-22] MEDS: EPOETIN ALFA-EPBX (ESRD) 10,000 UNIT/ML VIAL SC (18:17)
[2018-07-22] MEDS: INSULIN GLARGINE [LANTus] (100 UNITS/ML) SYG SC (21:27)
[2018-07-23] MEDS: INSULIN ASPART [NOVOLOG] 3 ML PEN SC ×7 (01:28→18:00)
[2018-07-23 06:41] LABS: ADD MAN DIFF? NO
[2018-07-23 06:45] LABS: WHITE BLOOD COUNT 10.4 10^3/ul (4.8-10.8)
[2018-07-23 06:45] LABS: ABNORMAL IP MESSAGE 1; BASOPHIL # 0.1 10^3/ul (0.0-0.1); BASOPHILS % 0.6 % (0.0-2.0); EOSINOPHILS # 0.3 10^3/ul (0.0-0.5); EOSINOPHILS % 3.1 % (0.0-7.0); HEMATOCRIT 26.6 % (42.0-52.0); HEMOGLOBIN 7.9 g/dl (14.0-18.0); LYMPHOCYTES # 0.7 10^3/ul (0.8-2.9); MEAN CORPUSCULAR HEMOGLOBIN 28.5 pg (29.0-33.0); MEAN CORPUSCULAR HGB CONC 29.7 g/dl (32.0-37.0); MONOCYTE # 0.6 10^3/ul (0.3-0.9); MONOCYTES % 6.1 % (0.0-11.0); NEUTROPHIL # 7.7 10^3/ul (1.6-7.5); NEUTROPHILS % 73.8 % (39.0-77.0); NUCLEATED RED BLOOD CELLS # 0.1 10^3/ul (0.0-0.0); NUCLEATED RED BLOOD CELLS% 0.6 /100WBC (0.0-0.0); PLATELET COUNT 95 10^3/UL (140-415); POSITIVE DIFF @See below; RED BLOOD COUNT 2.77 10^6/ul (4.70-6.10); RED CELL DISTRIBUTION WIDTH 18.5 % (11.5-14.5)
[2018-07-23 07:12] LABS: ANION GAP 9 (5-13); BLOOD UREA NITROGEN 40 mg/dl (7-20); CARBON DIOXIDE 28 mmol/L (21-31); CHLORIDE 104 mmol/L (97-110); CREATININE 1.37 mg/dl (0.61-1.24); Estimated GFR 52 mL/min (>60); GLUCOSE 124 mg/dl (70-220); POTASSIUM 3.7 mmol/L (3.5-5.1); SODIUM 141 mmol/L (135-144)
[2018-07-23] MEDS: FLUCONAZOLE 200 MG TAB PO (10:06)
[2018-07-23] MEDS: HEPARIN 1000 UNITS/ML 10 ML INJ CATHETER (17:54)
[2018-07-23] MEDS: COLLAGENASE 5 GM (UD JAR) TOP ×2 (18:21→22:35)
[2018-07-23] MEDS: NYSTATIN 30 GM POWDER BTL TOP ×2 (18:21→22:40)
[2018-07-23] MEDS: DAKINS 0.0125%(1/40) 473 ML SOLUTION TP ×2 (18:23→22:07)
[2018-07-23] MEDS: BALSAM PERU/CASTOR OIL 60 GM TUBE TOP ×2 (18:24→22:08)
[2018-07-23] MEDS: TESTOSTERONE CYPIONATE 200 MG/ML INJ IM (22:35)
[2018-07-23] MEDS: INSULIN GLARGINE [LANTus] (100 UNITS/ML) SYG SC (23:27)
[2018-07-24 06:09] LABS: ADD MAN DIFF? NO
[2018-07-24 06:18] LABS: WHITE BLOOD COUNT 10.4 10^3/ul (4.8-10.8)
[2018-07-24 06:18] LABS: ABNORMAL IP MESSAGE 1; BASOPHIL # 0.1 10^3/ul (0.0-0.1); BASOPHILS % 0.9 % (0.0-2.0); EOSINOPHILS # 0.2 10^3/ul (0.0-0.5); EOSINOPHILS % 2.3 % (0.0-7.0); HEMATOCRIT 24.2 % (42.0-52.0); HEMOGLOBIN 7.3 g/dl (14.0-18.0); LYMPHOCYTES # 0.7 10^3/ul (0.8-2.9); LYMPHOCYTES % 6.8 % (15.0-51.0); MEAN CORPUSCULAR HEMOGLOBIN 28.7 pg (29.0-33.0); MEAN CORPUSCULAR HGB CONC 30.2 g/dl (32.0-37.0); MEAN CORPUSCULAR VOLUME 95.3 fl (82.0-101.0); MEAN PLATELET VOLUME 11.7 fl (7.4-10.4); MONOCYTE # 0.8 10^3/ul (0.3-0.9); MONOCYTES % 7.3 % (0.0-11.0); NEUTROPHILS % 77.1 % (39.0-77.0); NUCLEATED RED BLOOD CELLS% 0.3 /100WBC (0.0-0.0); PLATELET COUNT 95 10^3/UL (140-415); POSITIVE DIFF @See below; RED BLOOD COUNT 2.54 10^6/ul (4.70-6.10); RED CELL DISTRIBUTION WIDTH 18.1 % (11.5-14.5)
[2018-07-24 06:44] LABS: ANION GAP 8 (5-13); BLOOD UREA NITROGEN 27 mg/dl (7-20); CALCIUM 8.5 mg/dl (8.4-10.2); CARBON DIOXIDE 29 mmol/L (21-31); CHLORIDE 103 mmol/L (97-110); CREATININE 1.03 mg/dl (0.61-1.24); Estimated GFR > 60 mL/min (>60); GLUCOSE 133 mg/dl (70-220); POTASSIUM 3.7 mmol/L (3.5-5.1); SODIUM 140 mmol/L (135-144)
[2018-07-24] MEDS: INSULIN ASPART [NOVOLOG] 3 ML PEN SC ×4 (06:59→18:11)
[2018-07-24] MEDS: GENTAMICIN 80 MG/NS (PMX) 50 ML IVPB (07:40)
[2018-07-24 08:00] LABS: BASOPHIL #M 0.1 10^3/ul (0.0-0.0); BASOPHILS % (M) 1 % (0-2); EOSINOPHILS % (M) 2 % (0-7); MICROCYTOSIS 1+ (0-0); PLATELET ESTIMATE DECREASED; PROMYELOCYTES #M 0.1 10^3/ul (0-0); PROMYELOCYTES % (M) 1 % (0-0); REACTIVE LYMPHOCYTES #M 0.1 10^3/ul (0.0-0.0); REACTIVE LYMPHOCYTES% (M) 1 % (0-0)
[2018-07-24] MEDS: FLUCONAZOLE 200 MG TAB PO (09:22)
[2018-07-24] MEDS: COLLAGENASE 5 GM (UD JAR) TOP ×2 (09:22→20:51)
[2018-07-24] MEDS: DAKINS 0.0125%(1/40) 473 ML SOLUTION TP ×2 (09:23→20:51)
[2018-07-24] MEDS: NYSTATIN 30 GM POWDER BTL TOP ×2 (09:24→20:51)
[2018-07-24] MEDS: BALSAM PERU/CASTOR OIL 60 GM TUBE TOP ×2 (09:24→20:51)
[2018-07-24 11:24] LABS: OCCULT BLOOD STOOL NEGATIVE (NEGATIVE)
[2018-07-24 12:10] LABS: ANISOCYTOSIS 2+ (0-0); BAND NEUTROPHILS #M 0.7 10^3/ul (0.0-0.6); BAND NEUTROPHILS % (M) 7 % (0-4); ERYTHROBLAST% (NRBC) (M) 1 % (0-0); LYMPHOCYTES #M 0.8 10^3/ul (0.8-2.9); LYMPHOCYTES % (M) 8 % (15-51); MONOCYTE #M 0.3 10^3/ul (0.3-0.9); MONOCYTES % (M) 3 % (0-11); MYELOCYTES #M 0.1 10^3/ul (0.0-0.0); MYELOCYTES % (M) 1 % (0-0); POIKILOCYTOSIS 2+ (0-0); POLYCHROMASIA 3+ (0-0); SEG NEUT #M 8.3 10^3/ul (1.6-7.5); SEGMENTED NEUTROPHILS (M) % 79 % (39-77); SMUDGE%M 7 % (0-0)
[2018-07-24] MEDS: EPOETIN ALFA-EPBX (ESRD) 10,000 UNIT/ML VIAL SC (18:06)
[2018-07-24] MEDS: INSULIN GLARGINE [LANTus] (100 UNITS/ML) SYG SC (21:07)
[2018-07-25] MEDS: INSULIN ASPART [NOVOLOG] 3 ML PEN SC ×5 (00:03→23:52)
[2018-07-25 05:49] LABS: ADD MAN DIFF? NO
[2018-07-25 06:01] LABS: ABNORMAL IP MESSAGE 1; BASOPHIL # 0.1 10^3/ul (0.0-0.1); BASOPHILS % 0.7 % (0.0-2.0); EOSINOPHILS # 0.3 10^3/ul (0.0-0.5); EOSINOPHILS % 2.6 % (0.0-7.0); LYMPHOCYTES # 0.8 10^3/ul (0.8-2.9); LYMPHOCYTES % 6.5 % (15.0-51.0); MEAN CORPUSCULAR HEMOGLOBIN 28.6 pg (29.0-33.0); MEAN CORPUSCULAR HGB CONC 29.6 g/dl (32.0-37.0); MEAN CORPUSCULAR VOLUME 96.4 fl (82.0-101.0); MEAN PLATELET VOLUME 11.4 fl (7.4-10.4); MONOCYTE # 0.8 10^3/ul (0.3-0.9); MONOCYTES % 6.7 % (0.0-11.0); NEUTROPHIL # 9.6 10^3/ul (1.6-7.5); NEUTROPHILS % 79.9 % (39.0-77.0); NUCLEATED RED BLOOD CELLS% 0.2 /100WBC (0.0-0.0); PLATELET COUNT 86 10^3/UL (140-415); POSITIVE DIFF @See below; RED CELL DISTRIBUTION WIDTH 17.9 % (11.5-14.5)
[2018-07-25 06:27] LABS: AMMONIA < 9 umol/l (9-30)
[2018-07-25 06:53] LABS: ALANINE AMINOTRANSFERASE 10 IU/L (13-69); ALBUMIN 2.7 g/dl (3.3-4.9); ALBUMIN/GLOBULIN RATIO 0.79; ALKALINE PHOSPHATASE 151 IU/L (42-121); ANION GAP 9 (5-13); ASPARTATE AMINO TRANSFERASE 21 IU/L (15-46); BILIRUBIN,INDIRECT 0.3 mg/dl (0-1.1); BILIRUBIN,TOTAL 0.3 mg/dl (0.2-1.3); BLOOD UREA NITROGEN 44 mg/dl (7-20); CARBON DIOXIDE 27 mmol/L (21-31); CHLORIDE 103 mmol/L (97-110); CREATININE 1.27 mg/dl (0.61-1.24); Estimated GFR 57 mL/min (>60); GLUCOSE 160 mg/dl (70-220); POTASSIUM 4.5 mmol/L (3.5-5.1); SODIUM 139 mmol/L (135-144); TOTAL PROTEIN 6.1 g/dl (6.1-8.1)
[2018-07-25] MEDS: FLUCONAZOLE 200 MG TAB PO (09:26)
[2018-07-25] MEDS: COLLAGENASE 5 GM (UD JAR) TOP ×2 (09:26→20:59)
[2018-07-25] MEDS: BALSAM PERU/CASTOR OIL 60 GM TUBE TOP ×2 (09:27→20:59)
[2018-07-25] MEDS: NYSTATIN 30 GM POWDER BTL TOP ×2 (09:27→20:59)
[2018-07-25] MEDS: DAKINS 0.0125%(1/40) 473 ML SOLUTION TP ×2 (09:27→20:59)
[2018-07-25] MEDS: HEPARIN 1000 UNITS/ML 10 ML INJ CATHETER (18:12)
[2018-07-25] MEDS: INSULIN GLARGINE [LANTus] (100 UNITS/ML) SYG SC (21:04)
[2018-07-25] MEDS: GENTAMICIN 80 MG/NS (PMX) 50 ML IVPB (21:13)
[2018-07-26] MEDS: INSULIN ASPART [NOVOLOG] 3 ML PEN SC ×3 (06:00→18:10)
[2018-07-26] MEDS: COLLAGENASE 5 GM (UD JAR) TOP ×2 (08:27→22:31)
[2018-07-26] MEDS: FLUCONAZOLE 200 MG TAB PO (08:27)
[2018-07-26] MEDS: DAKINS 0.0125%(1/40) 473 ML SOLUTION TP ×2 (08:28→22:31)
[2018-07-26] MEDS: BALSAM PERU/CASTOR OIL 60 GM TUBE TOP ×2 (08:28→22:30)
[2018-07-26] MEDS: NYSTATIN 30 GM POWDER BTL TOP ×2 (08:28→22:31)
[2018-07-26] MEDS: INSULIN GLARGINE [LANTus] (100 UNITS/ML) SYG SC (22:36)
[2018-07-27] MEDS: INSULIN ASPART [NOVOLOG] 3 ML PEN SC ×4 (00:38→17:38)
[2018-07-27] MEDS: COLLAGENASE 5 GM (UD JAR) TOP ×2 (09:35→21:30)
[2018-07-27] MEDS: FLUCONAZOLE 200 MG TAB PO (09:35)
[2018-07-27] MEDS: BALSAM PERU/CASTOR OIL 60 GM TUBE TOP ×2 (09:36→21:30)
[2018-07-27] MEDS: NYSTATIN 30 GM POWDER BTL TOP ×2 (09:36→21:30)
[2018-07-27] MEDS: DAKINS 0.0125%(1/40) 473 ML SOLUTION TP ×2 (09:36→21:30)
[2018-07-27] MEDS: HEPARIN 1000 UNITS/ML 10 ML INJ CATHETER (13:35)
[2018-07-27] MEDS: GENTAMICIN 80 MG/NS (PMX) 50 ML IVPB (17:37)
[2018-07-27] MEDS: EPOETIN ALFA-EPBX (ESRD) 10,000 UNIT/ML VIAL SC (17:38)
[2018-07-27] MEDS ORDERED: INSULIN GLARGINE [LANTus] (100 UNITS/ML) SYG SC (21:00)
[2018-07-27] MEDS: INSULIN GLARGINE [LANTus] (100 UNITS/ML) SYG SC (21:34)
[2018-07-28] MEDS: INSULIN ASPART [NOVOLOG] 3 ML PEN SC ×3 (06:00→11:58)
[2018-07-28 06:48] LABS: ADD MAN DIFF? NO
[2018-07-28 06:52] LABS: ABNORMAL IP MESSAGE 1; BASOPHIL # 0.1 10^3/ul (0.0-0.1); BASOPHILS % 0.5 % (0.0-2.0); EOSINOPHILS # 0.4 10^3/ul (0.0-0.5); EOSINOPHILS % 3.5 % (0.0-7.0); HEMATOCRIT 25.7 % (42.0-52.0); HEMOGLOBIN 7.7 g/dl (14.0-18.0); LYMPHOCYTES # 0.8 10^3/ul (0.8-2.9); LYMPHOCYTES % 8.4 % (15.0-51.0); MEAN CORPUSCULAR HEMOGLOBIN 28.5 pg (29.0-33.0); MEAN CORPUSCULAR VOLUME 95.2 fl (82.0-101.0); MEAN PLATELET VOLUME 11.6 fl (7.4-10.4); MONOCYTE # 0.8 10^3/ul (0.3-0.9); MONOCYTES % 7.9 % (0.0-11.0); NEUTROPHIL # 7.6 10^3/ul (1.6-7.5); NEUTROPHILS % 76.9 % (39.0-77.0); NUCLEATED RED BLOOD CELLS% 0.2 /100WBC (0.0-0.0); PLATELET COUNT 96 10^3/UL (140-415); POSITIVE DIFF @See below; RED CELL DISTRIBUTION WIDTH 17.6 % (11.5-14.5)
[2018-07-28] MEDS: FLUCONAZOLE 200 MG TAB PO (09:45)
[2018-07-28] MEDS: INSULIN GLARGINE [LANTus] (100 UNITS/ML) SYG SC (09:47)
[2018-07-28] MEDS: DAKINS 0.0125%(1/40) 473 ML SOLUTION TP (09:47)
[2018-07-28] MEDS: NYSTATIN 30 GM POWDER BTL TOP (09:47)
[2018-07-28] MEDS: COLLAGENASE 5 GM (UD JAR) TOP (09:48)
[2018-07-28] MEDS: BALSAM PERU/CASTOR OIL 60 GM TUBE TOP (09:48)
== END 2018-07-28 17:41 | DRG 682 ==
LOC: 6WM 23:27 → E/R 21:09
PROVIDERS: Internal Medicine
PROC: 5A1955Z Respiratory Ventilation, Greater than 96 Consecutive Hours (ICD-10-PCS; principal; 2018-07-17)
PROC: 30233N1 Transfusion of Nonautologous Red Blood Cells into Peripheral Vein, Percutaneous Approach (ICD-10-PCS; 2018-07-18)
PROC: 5A1D70Z Performance of Urinary Filtration, Intermittent, Less than 6 Hours Per Day (ICD-10-PCS; 2018-07-19)
DX: I12.0 Hypertensive chronic kidney disease with stage 5 chronic kidney disease or end stage renal disease (principal); J81.0 Acute pulmonary edema; N18.6 End stage renal disease; J96.10 Chronic respiratory failure, unspecified whether with hypoxia or hypercapnia; R65.10 Systemic inflammatory response syndrome (SIRS) of non-infectious origin without acute organ dysfunction; N39.0 Urinary tract infection, site not specified; Z99.11 Dependence on respirator [ventilator] status; G93.49 Other encephalopathy; Z79.4 Long term (current) use of insulin; D63.1 Anemia in chronic kidney disease; Z99.2 Dependence on renal dialysis; Z93.0 Tracheostomy status; E78.5 Hyperlipidemia, unspecified; E87.6 Hypokalemia; K94.29 Other complications of gastrostomy; R13.10 Dysphagia, unspecified; E11.21 Type 2 diabetes mellitus with diabetic nephropathy; Z66 Do not resuscitate; H54.3 Unqualified visual loss, both eyes; E11.39 Type 2 diabetes mellitus with other diabetic ophthalmic complication; B96.1 Klebsiella pneumoniae [K. pneumoniae] as the cause of diseases classified elsewhere; F64.9 Gender identity disorder, unspecified; Z86.74 Personal history of sudden cardiac arrest; E87.70 Fluid overload, unspecified; E11.354 Type 2 diabetes mellitus with proliferative diabetic retinopathy with combined traction retinal detachment and rhegmatogenous retinal detachment
CPT/HCPCS: 36430; 36600; 71045; 76705; 80048; 80053; 80202; 81001; 82140; 82270; 82565; 82607; 82728; 82746; 82803; 82962; 83540; 83605; 84484; 84520; 85025; 85045; 85610; 85730; 86850; 86900; 86901; 86920; 87040-91; 87081; 87086; 87340; 90935; 93005; 93970; 94002; 94003; 96365; 96368; 99285-25